=== PATIENT | female | born 2005 | race Asian ===

== ENCOUNTER 2024-06-23 12:17 | Inpatient (IN) ==
[2024-06-23] MEDS: SODIUM CHLORIDE 0.9% 1,000 ML IV SCH (13:06)
[2024-06-23] MEDS: ACETAMINOPHEN 1,000 MG/100 ML VIAL IV STA (13:07)
[2024-06-23 13:21] LABS: Appearance Urine Clear (Clear); Bacteria Urine Automated None Seen (None Seen); Bilirubin Urine Negative (Negative); Blood Urine Negative (Negative); Cast Urine Automated 0-2 /lpf (0-2); Color Urine Yellow; Glucose Urine UA Negative (Negative); Ketones Urine Negative (Negative); Leukocyte Esterase Urine Trace (Negative); Nitrite Urine Negative (Negative); Protein Urine Negative (Negative); Specific Gravity Urine 1.019 (1.000-1.030); Urobilinogen Urine Negative (Negative); WBC Urine Automated 0-5 /hpf (0-5); pH Urine >= 9.0 (4.5-7.5)
[2024-06-23 13:23] LABS: Base Excess VBG -1.1 mEq/L; HCO3 VBG 22 mmol/L; Oxygen Saturation VBG < 60.0 %; PCO2 VBG 32 mmHg (38-50); PO2 VBG 22 mmHg; pH VBG 7.45 (7.36-7.41)
[2024-06-23 13:25] LABS: Hematocrit (blood only) 37.5 % (37.0-47.0); Hemoglobin 12.8 g/dl (12.0-16.0); Mean Corpuscular Hemoglobin 29.8 pg (25.0-34.0); Mean Corpuscular Hgb Conc 34.1 g/dL (32.0-36.0); Mean Corpuscular Volume 87.2 fL (80.0-100.0); Mean Platelet Volume 10.3 fL (9.4-12.4); Platelet Count 328 K/uL (130-400); RDW Coefficient of Variation 12.1 % (11.5-14.5); White Blood Count 16.48 K/ul (4.8-10.8)
[2024-06-23 13:42] LABS: Basophils # (auto) 0.03 K/uL (0.00-0.20); Basophils % (auto) 0.2 %; Eosinophils # (auto) 0.01 K/uL (0.00-0.50); Eosinophils % (auto) 0.1 %; Immature Granulocytes # (auto) 0.08 K/uL (0.01-0.20); Immature Granulocytes % (auto) 0.5 %; Lymphocytes # (auto) 0.73 K/uL (1.20-3.40); Lymphocytes % (auto) 4.4 %; Monocytes # (auto) 0.47 K/uL (0.11-0.59); Monocytes % (auto) 2.9 %; Neutrophils # (auto) 15.16 K/uL (1.40-6.50); Neutrophils % (auto) 91.9 %
[2024-06-23 13:46] LABS: Alanine Aminotransferase 7 U/L (7-52); Albumin Level 4.6 gm/dl (3.4-5.0); Alkaline Phosphatase 47 U/L (34-104); Anion Gap 9 (3-11); Aspartate Aminotransferase 14 U/L (13-39); BUN Creatinine Ratio 12.9 (10-20); Bilirubin Direct 0.1 mg/dl (0-0.2); Blood Urea Nitrogen 9 mg/dl (6-23); Calcium 9.4 mg/dl (8.6-10.3); Carbon Dioxide 22 mmol/L (21-32); Chloride 104 mmol/L (98-107); Est GFR (African American) 144.6 ml/min; Est GFR (Non-African American) 124.7 ml/min; Glucose 106 mg/dl (70-99(Fasting)); Lipase 15 U/L (11-82); Magnesium 1.6 mg/dl (1.7-2.4); Potassium 3.6 mmol/L (3.5-5.1); Sodium 135 mmol/L (136-145); Total Protein 7.5 gm/dl (6.0-8.3)
--- NOTE | 2024-06-23 13:46 | XRay Report ---
XR chest 1V portable HISTORY: Sepsis COMPARISON: Chest 11/19/2023. FINDINGS: The lungs are clear. Cardiac silhouette is normal in size. No pleural effusions. No pneumot horax. IMPRESSION: No acute process. ACT 112: Negative or not required by law. Electronically signed by: Kumar Romero M.D. 06/23/2024 1:44 PM
[2024-06-23 13:49] LABS: Troponin I High Sensitivity < 2.3 pg/ml (0-14)
[2024-06-23 13:52] LABS: Partial Thromboplastin Time 27 Seconds (21-31); Prothrombin Time 10.5 Seconds (9.0-12.0)
[2024-06-23 14:09] LABS: Adenovirus PCR Not Detected (NotDetected); Bordetella parapertussis PCR Not Detected (NotDetected); Bordetella pertussis PCR Not Detected (NotDetected); Chlamydia pneumoniae PCR Not Detected (NotDetected); Coronavirus 229E PCR Not Detected (NotDetected); Coronavirus CoV-2 (COVID19)PCR Not Detected (NotDetected); Coronavirus HKU1 PCR Not Detected (NotDetected); Coronavirus NL63 PCR Not Detected (NotDetected); Coronavirus OC43PCR Not Detected (NotDetected); Human Metapneumovirus PCR Not Detected (NotDetected); Influenza A PCR Not Detected (NotDetected); Influenza B PCR Not Detected (NotDetected); Mycoplasma pneumoniae PCR Not Detected (NotDetected); Parainfluenza Virus 1 PCR Not Detected (NotDetected); Parainfluenza Virus 2 PCR Not Detected (NotDetected); Parainfluenza Virus 3 PCR Not Detected (NotDetected); Parainfluenza Virus 4 PCR Not Detected (NotDetected); Respiratory Syncytial VirusPCR Not Detected (NotDetected); Rhinovirus/Enterovirus PCR Not Detected (NotDetected)
--- NOTE | 2024-06-23 15:43 | Electrocardiogram Report ---
Test Reason : Blood Pressure : */* mmHG Vent. Rate : 121 BPM Atrial Rate : 121 BPM P-R Int : 144 ms QRS Dur : 84 ms QT Int : 308 ms P-R-T Axes : 56 103 54 degrees QTcB Int : 437 ms Sinus tachycardia Rightward axis Borderline ECG When compared with ECG of 19-Nov-2023 19:03, No significant change was found Confirmed by Magdaleno Gregorio ([id number]) on 06/23/2024 3:42:59 PM Referred By: REFERRED SELF Confirmed By: Magdaleno Gregorio
[2024-06-23] MEDS: OPTIRAY 320 100ml IV ONE (16:21)
--- NOTE | 2024-06-23 16:52 | CT Scan Report ---
ABDOMEN AND PELVIS CT WITH IV AND ORAL CONTRAST CT DOSE: 458.75 mGy.cm HISTORY: abdomen pain TECHNIQUE: Multiaxial CT images of the abdomen and pelvis were performed following the use of intrave nous and oral contrast. A dose lowering technique was utilized adhering to the principles of ALARA. COMPARISON STUDY: None. FINDINGS: The lung bases are clear. No pneumoperitoneum. No pneumatosis. No acute fractures. The live r, spleen, adrenal glands, pancreas, and gallbladder are unremarkable. The kidneys enhance normally. No hydronephrosis. No retroperitoneal lymphadenopathy. The main portal vein is patent. Normal caliber abdominal aorta. No pelvic lymphadenopathy. The bladder, uterus, left ovary are unremarkable. There is a 4.5 cm right ovarian cyst with trace surrounding fluid. No bowel wall thickening or obstruction. The appendix is seen inferior to the cecum. The proximal portion appendix fills with gas. However, t he mid to distal appendix fills with fluid. The mid to distal appendix is at the upper limits of norm al for size measuring 6 mm. There is questionable mild thickening of the appendiceal wall and mild pe riappendiceal fat stranding. Therefore, these findings are equivocal for acute appendicitis with an e marvin acute appendicitis the diagnosis of exclusion. IMPRESSION: 1. The mid to distal appendix fills with fluid and is at the upper limits of normal for size measurin g 6 mm. There is questionable mild thickening of the appendiceal wall and mild periappendiceal fat st randing. Therefore, these findings are equivocal for acute appendicitis with an early acute appendici tis the diagnosis of exclusion. Surgical consultation recommended. 2. A 4.5 cm right ovarian cyst with trace surrounding fluid. 3. No bowel wall thickening or obstruction. ACT 112: Negative or not required by law. Electronically signed by: Kumar Romero M.D. 06/23/2024 4:51 PM
--- NOTE | 2024-06-23 17:41 | Emergency Department Note ---
History of Present Illness General Chief Complaint: Vertigo Stated Complaint: VERTIGO, HEART HURTS, SORE THROAT Time Seen by Provider: 06/23/24 12:32 History of Present Illness Provider Complaint: + fever, + cough, + sore throat and + nasal congestion Onset (ago): 2 day(s) Duration: + constant Maximum Pain Intensity: 6 Able to tolerate fluids by mouth: Yes Associated symptoms: + chills, + myalgias, + rhinorrhea, + chest pain, + shortness of breath, + abdominal pain and + nausea; no headache, no stiff neck, no vomiting, no diarrhea or no dysuria Home Medications Medication Instructions Recorded Confirmed Type triamcinolone acetonide 55 mcg 0 spray intranasal DAILY 06/23/24 06/23/24 History nasal spray aerosol (Nasacort Allergy) Allergies Allergy/AdvReac Type Severity Reaction Status Date / Time animal dander Allergy Severe Difficulty Unverified 06/23/24 16:35 Breathing greer Allergy Severe Difficulty Unverified 06/23/24 16:35 Swallowing greer flavor Allergy Severe Difficulty Unverified 06/23/24 16:35 Swallowing oats Allergy Severe Oat Milk - Unverified 06/23/24 16:35 Swelling of throat pollen extracts Allergy Severe Sneezing, Unverified 06/23/24 16:35 itchy, watery eyes Past Med/Surg History Problem List (Updated 06/23/24 @ 20:23 by Arash Tolentino MD) Fever (Acute) Appendicitis (Acute) Concussion Medical History No pertinent family history Surgical History No pertinent past surgical history Social History Smoking Status: Never smoker Preferred Language: Spanish Feels Safe at Home: Yes Physical Exam 2 Vital Signs: Vital Signs - 24 hr 06/23/24 12:27 06/23/24 12:37 06/23/24 12:47 Temperature 38 C H Temperature Source Temporal Artery Sc an Pulse Rate 130 H 122 H Pulse Rate [Right Finger] 119 H Pulse Rhythm Regular Regular Pulse Rhythm [Righ t Finger] Regular Pulse Strength Normal Pulse Strength [Ri ght Finger] Normal Respiratory Rate 20 15 20 Respiratory Effort / Characteristics Non-Labored Sponta neous Non-Labored Respiratory Depth Normal Normal Respiratory Patter n Regular Blood Pressure 106/63 Blood Pressure [Ri ght Arm] 111/82 Blood Pressure Jessica n 77 Blood Pressure Jessica n [Right Arm] 91 Blood Pressure Pos ition Sitting Blood Pressure Pos ition [Right Arm] Lying Pulse Oximetry 100 100 97 Oxygen Delivery Me thod Room Air Room Air Room Air Sepsis Recent Feve r Within 48 Hours No Sepsis New/Unexpla ined Change in Men wilfrido Status N/A Sepsis Action Take n by Nursing No Action Required 06/23/24 13:07 06/23/24 13:17 06/23/24 13:46 Temperature Temperature Source Pulse Rate 122 H Pulse Rate [Right Finger] 120 H 116 H Pulse Rhythm Pulse Rhythm [Righ t Finger] Regular Regular Pulse Strength Pulse Strength [Ri ght Finger] Normal Normal Respiratory Rate 20 18 Respiratory Effort / Characteristics Non-Labored Non-Labored Respiratory Depth Normal Normal Respiratory Patter n Regular Regular Blood Pressure Blood Pressure [Ri ght Arm] 103/67 96/62 L Blood Pressure Jessica n Blood Pressure Jessica n [Right Arm] 79 73 Blood Pressure Pos ition Blood Pressure Pos ition [Right Arm] Lying Lying Pulse Oximetry 99 99 Oxygen Delivery Me thod Room Air Room Air Sepsis Recent Feve r Within 48 Hours Sepsis New/Unexpla ined Change in Men wilfrido Status Sepsis Action Take n by Nursing 06/23/24 14:25 06/23/24 16:28 06/23/24 18:30 Temperature Temperature Source Pulse Rate Pulse Rate [Right Finger] 119 H 97 H 94 H Pulse Rhythm Pulse Rhythm [Righ t Finger] Regular Pulse Strength Pulse Strength [Ri ght Finger] Normal Respiratory Rate 17 14 14 Respiratory Effort / Characteristics Non-Labored Respiratory Depth Normal Respiratory Patter n Regular Blood Pressure Blood Pressure [Ri ght Arm] 106/64 105/66 Blood Pressure Jessica n Blood Pressure Jessica n [Right Arm] 78 79 Blood Pressure Pos ition Blood Pressure Pos ition [Right Arm] Lying Pulse Oximetry 98 99 99 Oxygen Delivery Me thod Room Air Room Air Sepsis Recent Feve r Within 48 Hours Sepsis New/Unexpla ined Change in Men wilfrido Status Sepsis Action Take n by Nursing 06/23/24 19:00 Temperature Temperature Source Pulse Rate Pulse Rate [Right Finger] 100 H Pulse Rhythm Pulse Rhythm [Righ t Finger] Regular Pulse Strength Pulse Strength [Ri ght Finger] Respiratory Rate 20 Respiratory Effort / Characteristics Non-Labored Respiratory Depth Normal Respiratory Patter n Blood Pressure Blood Pressure [Ri ght Arm] 114/79 Blood Pressure Jessica n Blood Pressure Jessica n [Right Arm] 90 Blood Pressure Pos ition Blood Pressure Pos ition [Right Arm] Pulse Oximetry 98 Oxygen Delivery Me thod Room Air Sepsis Recent Feve r Within 48 Hours Sepsis New/Unexpla ined Change in Men wilfrido Status Sepsis Action Take n by Nursing Physical Exam: Physical Exam HENT: Exam performed. -Head: Normocephalic and atraumatic. -Right Ear: External ear normal. No mastoid erythema -Left Ear: External ear normal. No mastoid erythema -Mouth/Throat: The oropharynx is clear and moist. No trismus in the jaw. No dental abscesses or uvula swelling. No oropharyngeal exudate or tonsillar abscesses. EYES: Conjunctivae and EOM are normal. Pupils are equal, round, and reactive to light. Right eye exhibits no discharge. Left eye exhibits no discharge. No scleral icterus. NECK: Normal range of motion. Neck supple. No JVD present. No rigidity. No tracheal deviation and normal range of motion present. No Brudzinski's sign and no Kernig's sign noted. CV: Tachycardic rate, regular rhythm, normal heart sounds and intact distal pulses. There is no peripheral edema. Palpable radial pulses bue. PULM/CHEST: Effort normal and breath sounds normal. No respiratory distress. No stridor. She has no wheezes. She has no rales. -Chest Wall: She exhibits no tenderness. ABD: The abdomen is soft. Bowel sounds are normal. She has no distension. No mass is present. There is tenderness to palpation of the right lower quadrant. MUSC/SKEL: Normal range of motion. There is no peripheral edema, tenderness or deformity. LYMPH: No cervical adenopathy. NEURO: She is alert and oriented to person, place, and time. She has normal strength. No cranial nerve deficit or sensory deficit. Coordination and gait normal. GCS eye subscore is 4. GCS verbal subscore is 5. GCS motor subscore is 6. Cerebellar tests wnl. SKIN: Skin is warm and dry. She is not diaphoretic. PSYCH: She has a normal mood and affect. Behavior is normal. Judgment and thought content normal. Course Course 1232: The patient was evaluated in room A3. A complete history and physical exam was performed Cardiac monitoring: An order was placed for continuous cardiac monitoring. The monitor shows a rate of 130 with sinus rhythm interpreted by or Sepsis protocols initiated. 1442: Vital signs stable.Labs show leukocytosis 16. Chest x-ray BioFire negative. Urinalysis negative. Repeat exam no meningeal signs. No focal neurological deficits. Patient no respiratory distress. Awaiting CT of the abdomen pelvis, patient is drinking contrast but states her discomfort is better after receiving IV fluids and IV Tylenol. 1715: Vital signs stable. CT of the abdomen pelvis shows possible early appendicitis. Will consult general surgery. 1754: On reassessment the patient alert and oriented x 3 with no focal neurological deficits no meningeal signs. Patient is reporting no abdominal pain. On repeat abdominal exam the patient is having no pain on palpation of the abdomen. Spoke with Dr. Buchanan he was asking to speak with the patient on his cell phone he asked that the patient be connected to his cell phone [phone]. Nursing will attempt to call him on his cell phone to have her discuss her options with Dr. Buchanan. 1926: Patient evaluated by TRACY Buchanan on-call for general surgery Nathanael Buchanan. They state they do not plan on OR at this time and no antibiotics at this time. They stated they will speak with medicine to see if the medicine team can admit the patient to their service. Administered Medications Discontinued Medications Sodium Chloride (Nss) 1,000 mls @ 999 mls/hr IV .Q1H1M [facility] Stop: 06/23/24 14:45 Last Infusion: 06/23/24 14:54 Dose: Infused Documented By: Admin: 06/23/24 14:47 Dose: 1,000 mls/hr Documented By: Infusion: 06/23/24 14:46 Dose: Infused Documented By: Admin: 06/23/24 13:06 Dose: 999 mls/hr Documented By: YOSELIN Acetaminophen (Ofirmev) 1,000 mg in 100 mls @ 400 mls/hr IV NOW STA Stop: 06/23/24 12:53 Last Infusion: 06/23/24 13:21 Dose: Infused Documented By: Admin: 06/23/24 13:07 Dose: 400 mls/hr Documented By: YOSELIN Ioversol (Optiray 320 100ml) 95 ml IV ONCE ONE Stop: 06/23/24 16:22 Last Admin: 06/23/24 16:21 Dose: 95 ml Documented By: NICK Medical Decision Making Laboratory Data Attestation: I reviewed the patient's lab results. 06/23/24 12:55 06/23/24 12:55 Lab Results 06/23/24 06/23/24 06/23/24 Range/Units 12:03 12:40 12:55 WBC 16.48 H (4.8-10.8) K/ul RBC 4.30 (4.20-5.40) M/uL Hgb 12.8 (12.0-16.0) g/dl Hct 37.5 (37.0-47.0) % MCV 87.2 (80.0-100.0) fL MCH 29.8 (25.0-34.0) pg MCHC 34.1 (32.0-36.0) g/dL RDW Std Deviation 39.0 (36.4-46.3) fL RDW Coeff of Brandon 12.1 (11.5-14.5) % Plt Count 328 (130-400) K/uL MPV 10.3 (9.4-12.4) fL Immature Gran % (Auto) 0.5 % Neut % (Auto) 91.9 % Lymph % (Auto) 4.4 % Roberts % (Auto) 2.9 % Eos % (Auto) 0.1 % Baso % (Auto) 0.2 % Neut # (Auto) 15.16 H (1.40-6.50) K/uL Lymph # (Auto) 0.73 L (1.20-3.40) K/uL Roberts # (Auto) 0.47 (0.11-0.59) K/uL Eos # (Auto) 0.01 (0.00-0.50) K/uL Baso # (Auto) 0.03 (0.00-0.20) K/uL Immature Gran # (Auto) 0.08 (0.01-0.20) K/uL PT 10.5 (9.0-12.0) Seconds INR 1.0 (0.9-1.1) APTT 27 (21-31) Seconds PTT Ratio 1.0 VBG pH 7.45 H (7.36-7.41) VBG pCO2 32 L (38-50) mmHg VBG pO2 22 mmHg VBG HCO3 22 mmol/L VBG O2 Saturation < 60.0 % VBG Base Excess -1.1 mEq/L Sodium 135 L (136-145) mmol/L Potassium 3.6 (3.5-5.1) mmol/L Chloride 104 (98-107) mmol/L Carbon Dioxide 22 (21-32) mmol/L Anion Gap 9 (3-11) BUN 9 (6-23) mg/dl Creatinine 0.70 (0.6-1.2) mg/dl Est Cr Clr Drug Dosing 106.0 ml/min Est GFR ( Amer) 144.6 ml/min Est GFR (Non-Af Amer) 124.7 ml/min BUN/Creatinine Ratio 12.9 (10-20) Glucose 106 H (70-99(Fasting)) mg/dl Lactate 2.0 (0.4-2.0) mmol/L Calcium 9.4 (8.6-10.3) mg/dl Magnesium 1.6 L (1.7-2.4) mg/dl Total Bilirubin 1.0 (0.2-1.0) mg/dl Direct Bilirubin 0.1 (0-0.2) mg/dl AST 14 (13-39) U/L ALT 7 (7-52) U/L Alkaline Phosphatase 47 (34-104) U/L Troponin I High Sens < 2.3 (0-14) pg/ml Total Protein 7.5 (6.0-8.3) gm/dl Albumin 4.6 (3.4-5.0) gm/dl Lipase 15 (11-82) U/L Procalcitonin < 0.02 (0-0.5) ng/ml Urine Color Urine Appearance (Clear) Urine pH (4.5-7.5) Ur Specific [place] (1.000-1.030) Urine Protein (Negative) Urine Glucose (UA) (Negative) Urine Ketones (Negative) Urine Blood (Negative) Urine Nitrite (Negative) Urine Bilirubin (Negative) Urine Urobilinogen (Negative) Ur Leukocyte Esterase (Negative) Urine WBC (Auto) (0-5) /hpf Urine RBC (Auto) (0-2) /hpf U Hyaline Cast (Auto) (0-2) /lpf U Epithel Cells (Auto) (0-2) /hpf Urine Bacteria (Auto) (None Seen) POC Ur Test (NEG) Adenovirus (PCR) Not Detected (NotDetected) B. pertussis DNA (PCR) Not Detected (NotDetected) B.parapertussis DNA PCR Not Detected (NotDetected) C. pneumoniae DNA (PCR) Not Detected (NotDetected) Coronavirus OC43 (PCR) Not Detected (NotDetected) Coronavirus HKU1 (PCR) Not Detected (NotDetected) Coronavirus 229E (PCR) Not Detected (NotDetected) SARS-CoV-2 (PCR) Not Detected (NotDetected) Coronavirus NL63 (PCR) Not Detected (NotDetected) Monoscreen Negative (Negative) Human Metapneumovir PCR Not Detected (NotDetected) Influenza Type A (PCR) Not Detected (NotDetected) Influenza Type B (PCR) Not Detected (NotDetected) M. pneumoniae (PCR) Not Detected (NotDetected) Parainfluenza 1 (PCR) Not Detected (NotDetected) Parainfluenza 2 (PCR) Not Detected (NotDetected) Parainfluenza 3 (PCR) Not Detected (NotDetected) Parainfluenza 4 (PCR) Not Detected (NotDetected) RSV (PCR) Not Detected (NotDetected) Entero/Rhino (PCR) Not Detected (NotDetected) Group A Strep (PCR) NOT DETECTED (NotDetected) 06/23/24 06/23/24 Range/Units 13:09 13:13 WBC (4.8-10.8) K/ul RBC (4.20-5.40) M/uL Hgb (12.0-16.0) g/dl Hct (37.0-47.0) % MCV (80.0-100.0) fL MCH (25.0-34.0) pg MCHC (32.0-36.0) g/dL RDW Std Deviation (36.4-46.3) fL RDW Coeff of Brandon (11.5-14.5) % Plt Count (130-400) K/uL MPV (9.4-12.4) fL Immature Gran % (Auto) % Neut % (Auto) % Lymph % (Auto) % Roberts % (Auto) % Eos % (Auto) % Baso % (Auto) % Neut # (Auto) (1.40-6.50) K/uL Lymph # (Auto) (1.20-3.40) K/uL Roberts # (Auto) (0.11-0.59) K/uL Eos # (Auto) (0.00-0.50) K/uL Baso # (Auto) (0.00-0.20) K/uL Immature Gran # (Auto) (0.01-0.20) K/uL PT (9.0-12.0) Seconds INR (0.9-1.1) APTT (21-31) Seconds PTT Ratio VBG pH (7.36-7.41) VBG pCO2 (38-50) mmHg VBG pO2 mmHg VBG HCO3 mmol/L VBG O2 Saturation % VBG Base Excess mEq/L Sodium (136-145) mmol/L Potassium (3.5-5.1) mmol/L Chloride (98-107) mmol/L Carbon Dioxide (21-32) mmol/L Anion Gap (3-11) BUN (6-23) mg/dl Creatinine (0.6-1.2) mg/dl Est Cr Clr Drug Dosing ml/min Est GFR ( Amer) ml/min Est GFR (Non-Af Amer) ml/min BUN/Creatinine Ratio (10-20) Glucose (70-99(Fasting)) mg/dl Lactate (0.4-2.0) mmol/L Calcium (8.6-10.3) mg/dl Magnesium (1.7-2.4) mg/dl Total Bilirubin (0.2-1.0) mg/dl Direct Bilirubin (0-0.2) mg/dl AST (13-39) U/L ALT (7-52) U/L Alkaline Phosphatase (34-104) U/L Troponin I High Sens (0-14) pg/ml Total Protein (6.0-8.3) gm/dl Albumin (3.4-5.0) gm/dl Lipase (11-82) U/L Procalcitonin (0-0.5) ng/ml Urine Color Yellow Urine Appearance Clear (Clear) Urine pH >= 9.0 H (4.5-7.5) Ur Specific [place] 1.019 (1.000-1.030) Urine Protein Negative (Negative) Urine Glucose (UA) Negative (Negative) Urine Ketones Negative (Negative) Urine Blood Negative (Negative) Urine Nitrite Negative (Negative) Urine Bilirubin Negative (Negative) Urine Urobilinogen Negative (Negative) Ur Leukocyte Esterase Trace H (Negative) Urine WBC (Auto) 0-5 (0-5) /hpf Urine RBC (Auto) 3-5 H (0-2) /hpf U Hyaline Cast (Auto) 0-2 (0-2) /lpf U Epithel Cells (Auto) 3-5 H (0-2) /hpf Urine Bacteria (Auto) None Seen (None Seen) POC Ur Test NEG (NEG) Adenovirus (PCR) (NotDetected) B. pertussis DNA (PCR) (NotDetected) B.parapertussis DNA PCR (NotDetected) C. pneumoniae DNA (PCR) (NotDetected) Coronavirus OC43 (PCR) (NotDetected) Coronavirus HKU1 (PCR) (NotDetected) Coronavirus 229E (PCR) (NotDetected) SARS-CoV-2 (PCR) (NotDetected) Coronavirus NL63 (PCR) (NotDetected) Monoscreen (Negative) Human Metapneumovir PCR (NotDetected) Influenza Type A (PCR) (NotDetected) Influenza Type B (PCR) (NotDetected) M. pneumoniae (PCR) (NotDetected) Parainfluenza 1 (PCR) (NotDetected) Parainfluenza 2 (PCR) (NotDetected) Parainfluenza 3 (PCR) (NotDetected) Parainfluenza 4 (PCR) (NotDetected) RSV (PCR) (NotDetected) Entero/Rhino (PCR) (NotDetected) Group A Strep (PCR) (NotDetected) Imaging Data Attestation: I personally reviewed and interpreted this imaging study as follows: My Impression: Chest x-ray negative. Airway clear. No pneumothorax. No consolidation. No cardiomegaly or cephalization.. No free air under the diaphragm. No fractures of the skeletal structures. Radiologist's Impression: Chest X-Ray 06/23/24 12:39 XR chest 1V portable HISTORY: Sepsis COMPARISON: Chest 11/19/2023. FINDINGS: The lungs are clear. Cardiac silhouette is normal in size. No pleural effusions. No pneumothorax. IMPRESSION: No acute process. ACT 112: Negative or not required by law. Electronically signed by: Kumar Romero M.D. 06/23/2024 1:44 PM Abdomen/Pelvis CT 06/23/24 13:[address] WITH IV AND ORAL CONTRAST CT DOSE: 458.75 mGy.cm HISTORY: abdomen pain TECHNIQUE: Multiaxial CT images of the abdomen and pelvis were performed following the use of intravenous and oral contrast. A dose lowering technique was utilized adhering to the principles of ALARA. COMPARISON STUDY: None. FINDINGS: The lung bases are clear. No pneumoperitoneum. No pneumatosis. No acute fractures. The liver, spleen, adrenal glands, pancreas, and gallbladder are unremarkable. The kidneys enhance normally. No hydronephrosis. No retroperitoneal lymphadenopathy. The main portal vein is patent. Normal caliber abdominal aorta. No pelvic lymphadenopathy. The bladder, uterus, left ovary are unremarkable. There is a 4.5 cm right ovarian cyst with trace surrounding fluid. No bowel wall thickening or obstruction. The appendix is seen inferior to the cecum. The proximal portion appendix fills with gas. However, the mid to distal appendix fills with fluid. The mid to distal appendix is at the upper limits of normal for size measuring 6 mm. There is questionable mild thickening of the appendiceal wall and mild periappendiceal fat stranding. Therefore, these findings are equivocal for acute appendicitis with an early acute appendicitis the diagnosis of exclusion. IMPRESSION: 1. The mid to distal appendix fills with fluid and is at the upper limits of normal for size measuring 6 mm. There is questionable mild thickening of the appendiceal wall and mild periappendiceal fat stranding. Therefore, these findings are equivocal for acute appendicitis with an early acute appendicitis the diagnosis of exclusion. Surgical consultation recommended. 2. A 4.5 cm right ovarian cyst with trace surrounding fluid. 3. No bowel wall thickening or obstruction. ACT 112: Negative or not required by law. Electronically signed by: Kumar Romero M.D. 06/23/2024 4:51 PM ECG Data Attestation: I personally reviewed and interpreted this ECG as follows: Rate (beats per minute): 121 Rhythm: sinus tachycardia Findings: no ST depression, no ST elevation or no prolonged QT MDM Narrative 1232: The patient was evaluated in room A3. A complete history and physical exam was performed Cardiac monitoring: An order was placed for continuous cardiac monitoring. The monitor shows a rate of 130 with sinus rhythm interpreted by or Sepsis protocols initiated. 1442: Vital signs stable.Labs show leukocytosis 16. Chest x-ray BioFire negative. Urinalysis negative. Repeat exam no meningeal signs. No focal neurological deficits. Patient no respiratory distress. Awaiting CT of the abdomen pelvis, patient is drinking contrast but states her discomfort is better after receiving IV fluids and IV Tylenol. 1715: Vital signs stable. CT of the abdomen pelvis shows possible early appendicitis. Will consult general surgery. 1754: On reassessment the patient alert and oriented x 3 with no focal neurological deficits no meningeal signs. Patient is reporting no abdominal pain. On repeat abdominal exam the patient is having no pain on palpation of the abdomen. Spoke with Dr. Buchanan he was asking to speak with the patient on his cell phone he asked that the patient be connected to his cell phone [phone]. Nursing will attempt to call him on his cell phone to have her discuss her options with Dr. Buchanan. 1926: Patient evaluated by TRACY Buchanan on-call for general surgery Nathanael Buchanan. They state they do not plan on OR at this time and no antibiotics at this time. They stated they will speak with medicine to see if the medicine team can admit the patient to their service. Impression & Plan Appendicitis, Fever Discharge Plan Visit Data Chief Complaint: Vertigo Stated Complaint: VERTIGO, HEART HURTS, SORE THROAT ED Provider: Arash Tolentino Discharge Problem: Appendicitis, Fever Patient Disposition: Being Evaluated by Hospitalist Forms Stand Alone Forms: [employer] Prescriptions Prescriptions: No Action triamcinolone acetonide [Nasacort Allergy] 55 mcg Aerosol,[place] 0 spray INTRANASAL DAILY Rx Instructions: Pt unsure of brand, but states OTC nasal spray once daily specifically for allergies. Referrals Referrals: [place],[facility] [Primary Care Provider] - Discharge Problem: Appendicitis Qualifiers: Appendicitis type: unspecified Qualified Code(s): K37 - Unspecified appendicitis Fever Qualifiers: Fever type: unspecified Qualified Code(s): R50.9 - Fever, unspecified
[2024-06-23] MEDS ORDERED: ONDANSETRON INJ 2 MG/ML 2 ML VIAL IV PRN (20:28)
[2024-06-23] MEDS ORDERED: SODIUM CHLORIDE 0.9% 1,000 ML IV SCH (20:30)
--- NOTE | 2024-06-23 20:30 | History & Physical Report ---
Date of Service June 23, 2024 Assessment & Plan (1) Sepsis: (2) Hypomagnesemia: (3) Dehydration: (4) Fever: (5) Appendicitis: Plan Sepsis/dehydration/tachycardia/neutrophilic leukocytosis- CT scan abdomen pelvis suggest possible early appendicitis General surgery has assessed patient, and reports discussion with patient regarding possible appendectomy Will order CT scan of head, and chest to assess for any possible other etiology BioFire testing negative Zosyn 4.5 g IV every 8 hours Zofran 4 mg IV every 4 hours as needed Acetaminophen 1 g IV every 8 hours as needed for mild pain or fever NSS + KCl 20 mill equivalents at a 25 mL/h Hypomagnesemia- Magnesium 1.6, give magnesium sulfate 1 g IV History of Present Illness Chief Complaint: The patient presents to the emergency department with complaint of generalized body aches, fatigue, headache and neck pain, sore throat with nasal congestion, nonproductive cough, and abdominal pain with nausea, and fever. Primary Care Provider: [facility] The patient is a 19-year-old female with past medical history of allergic rhinitis, who presents to the emergency department with multiple complaints as noted above. The patient did undergo a workup in the emergency department which was significant for elevated WBC of 16.48, low magnesium of 1.6, negative BioFire testing, and a CT scan of abdomen pelvis which questioned possible early acute appendicitis. The patient was assessed by general surgery in the emergency department, who report that they did offer the patient surgery for appendicitis, however, patient and family did not give consent. The patient has developed more significant headache and some mild neck discomfort, without photophobia, and notes generalized muscle and bone aches, suggestive of developing early sepsis. Allergies Allergy/AdvReac Type Severity Reaction Status Date / Time animal dander Allergy Severe Difficulty Unverified 06/23/24 16:35 Breathing greer Allergy Severe Difficulty Unverified 06/23/24 16:35 Swallowing greer flavor Allergy Severe Difficulty Unverified 06/23/24 16:35 Swallowing oats Allergy Severe Oat Milk - Unverified 06/23/24 16:35 Swelling of throat pollen extracts Allergy Severe Sneezing, Unverified 06/23/24 16:35 itchy, watery eyes Home Medications Medication Instructions Recorded Confirmed Type triamcinolone acetonide 55 mcg 0 spray intranasal DAILY 06/23/24 06/23/24 History nasal spray aerosol (Nasacort Allergy) Past Med/Surg History Problem List (Updated 06/23/24 @ 22:59 by Shant Wells MD) Dehydration Hypomagnesemia Sepsis Fever (Acute) Appendicitis (Acute) Concussion Medical History No pertinent family history Surgical History No pertinent past surgical history Social History Smoking Status: Never smoker Hx Alcohol Use: No Hx Substance Use: No Preferred Language: Khmer Communication Ability: Effective Automatic Driller And Reamer Required: No Beliefs That Will Affect Care: None Current Living Situation: Alone Current Living Situation Comment: [employer] [facility] [facility] [employer] student Other Information That Helps Us Care for You: No Feels Safe at Home: Yes Safety Concerns: Feels Safe At This Time Assistive Devices: None Review of Systems Review of Systems: The patient denies lower extremity swelling, nausea, vomiting, blood in urine or stool, dysuria, urinary frequency or urgency, memory loss, loss of consciousness, rash, abnormal bruising or bleeding, imbalance, focal weakness, numbness or tingling in arms or legs, or night sweats. The review of systems is otherwise negative other than for that already noted above, and at least 10 systems have been reviewed. Physical Exam Physical Exam: The patient is awake, alert and oriented 3, well developed and well nourished, normocephalic and atraumatic, lying in bed and in no acute distress. HEENT--PERRL, EOMI, mucous membranes and oropharynx mildly dry. Neck--supple. No JVD. No bruits. Thyroid normal, trachea midline, no adenopathy. Heart--normal S1 and S2. No murmurs, rubs or gallops. Lungs--clear bilaterally, no respiratory distress, no accessory muscle use. Abdomen--normal bowel sounds and soft. Nontender. Nondistended, no hernias or masses, no organomegaly. Extremities--no cyanosis or clubbing. No edema. Dermatologic--normal skin turgor, normal color, no abnormal lymph nodes, no rash. Neurologic--cranial nerves II through XII grossly intact. Rheumatologic--normal range of motion. Psychiatric--normal affect. Results & Data Results & Data Vital Signs (Past 12 Hours) Vital Signs Temp Pulse Pulse Resp BP BP Pulse Ox 06/23/24 19:00 100 H 20 114/79 98 06/23/24 18:30 94 H 14 99 06/23/24 16:28 97 H 14 105/66 99 06/23/24 14:25 119 H 17 106/64 98 06/23/24 13:46 116 H 18 96/62 L 99 06/23/24 13:17 120 H 20 103/67 99 06/23/24 13:07 122 H 06/23/24 12:47 122 H 20 97 06/23/24 12:37 119 H 15 111/82 100 06/23/24 12:27 38 C H 130 H 20 106/63 100 O2 Del Method 06/23/24 19:00 Room Air 06/23/24 18:30 Room Air 06/23/24 16:28 06/23/24 14:25 Room Air 06/23/24 13:46 Room Air 06/23/24 13:17 Room Air 06/23/24 13:07 06/23/24 12:47 Room Air 06/23/24 12:37 Room Air 06/23/24 12:27 Room Air Laboratory Results Laboratory Results WBC 16.48 K/ul (4.8-10.8) H 06/23/24 12:55 RBC 4.30 M/uL (4.20-5.40) 06/23/24 12:55 Hgb 12.8 g/dl (12.0-16.0) 06/23/24 12:55 Hct 37.5 % (37.0-47.0) 06/23/24 12:55 MCV 87.2 fL (80.0-100.0) 06/23/24 12:55 MCH 29.8 pg (25.0-34.0) 06/23/24 12:55 MCHC 34.1 g/dL (32.0-36.0) 06/23/24 12:55 RDW Std Deviation 39.0 fL (36.4-46.3) 06/23/24 12:55 RDW Coeff of [place] 12.1 % (11.5-14.5) 06/23/24 12:55 Plt Count 328 K/uL (130-400) 06/23/24 12:55 MPV 10.3 fL (9.4-12.4) 06/23/24 12:55 Immature Gran % (Auto) 0.5 % 06/23/24 12:55 Neut % (Auto) 91.9 % 06/23/24 12:55 Lymph % (Auto) 4.4 % 06/23/24 12:55 [place] % (Auto) 2.9 % 06/23/24 12:55 Eos % (Auto) 0.1 % 06/23/24 12:55 Baso % (Auto) 0.2 % 06/23/24 12:55 Neut # (Auto) 15.16 K/uL (1.40-6.50) H 06/23/24 12:55 Lymph # (Auto) 0.73 K/uL (1.20-3.40) L 06/23/24 12:55 [place] # (Auto) 0.47 K/uL (0.11-0.59) 06/23/24 12:55 Eos # (Auto) 0.01 K/uL (0.00-0.50) 06/23/24 12:55 Baso # (Auto) 0.03 K/uL (0.00-0.20) 06/23/24 12:55 Immature Gran # (Auto) 0.08 K/uL (0.01-0.20) 06/23/24 12:55 PT 10.5 Seconds (9.0-12.0) 06/23/24 12:55 INR 1.0 (0.9-1.1) 06/23/24 12:55 APTT 27 Seconds (21-31) 06/23/24 12:55 PTT Ratio 1.0 06/23/24 12:55 VBG pH 7.45 (7.36-7.41) H 06/23/24 12:55 VBG pCO2 32 mmHg (38-50) L 06/23/24 12:55 VBG pO2 22 mmHg 06/23/24 12:55 VBG HCO3 22 mmol/L 06/23/24 12:55 VBG O2 Saturation < 60.0 % 06/23/24 12:55 VBG Base Excess -1.1 mEq/L 06/23/24 12:55 Sodium 135 mmol/L (136-145) L 06/23/24 12:55 Potassium 3.6 mmol/L (3.5-5.1) 06/23/24 12:55 Chloride 104 mmol/L (98-107) 06/23/24 12:55 Carbon Dioxide 22 mmol/L (21-32) 06/23/24 12:55 Anion Gap 9 (3-11) 06/23/24 12:55 BUN 9 mg/dl (6-23) 06/23/24 12:55 Creatinine 0.70 mg/dl (0.6-1.2) 06/23/24 12:55 Est Cr Clr Drug Dosing 106.0 ml/min 06/23/24 12:55 Est GFR ( Amer) 144.6 ml/min 06/23/24 12:55 Est GFR (Non-Af Amer) 124.7 ml/min 06/23/24 12:55 BUN/Creatinine Ratio 12.9 (10-20) 06/23/24 12:55 Glucose 106 mg/dl (70-99(Fasting)) H 06/23/24 12:55 Lactate 2.0 mmol/L (0.4-2.0) 06/23/24 12:55 Calcium 9.4 mg/dl (8.6-10.3) 06/23/24 12:55 Magnesium 1.6 mg/dl (1.7-2.4) L 06/23/24 12:55 Total Bilirubin 1.0 mg/dl (0.2-1.0) 06/23/24 12:55 Direct Bilirubin 0.1 mg/dl (0-0.2) 06/23/24 12:55 AST 14 U/L (13-39) 06/23/24 12:55 ALT 7 U/L (7-52) 06/23/24 12:55 Alkaline Phosphatase 47 U/L (34-104) 06/23/24 12:55 Troponin I High Sens < 2.3 pg/ml (0-14) 06/23/24 12:55 Total Protein 7.5 gm/dl (6.0-8.3) 06/23/24 12:55 Albumin 4.6 gm/dl (3.4-5.0) 06/23/24 12:55 Lipase 15 U/L (11-82) 06/23/24 12:55 Procalcitonin < 0.02 ng/ml (0-0.5) 06/23/24 12:55 Urine Color Yellow 06/23/24 13:09 Urine Appearance Clear (Clear) 06/23/24 13:09 Urine pH >= 9.0 (4.5-7.5) H 06/23/24 13:09 Ur Specific [place] 1.019 (1.000-1.030) 06/23/24 13:09 Urine Protein Negative (Negative) 06/23/24 13:09 Urine Glucose (UA) Negative (Negative) 06/23/24 13:09 Urine Ketones Negative (Negative) 06/23/24 13:09 Urine Blood Negative (Negative) 06/23/24 13:09 Urine Nitrite Negative (Negative) 06/23/24 13:09 Urine Bilirubin Negative (Negative) 06/23/24 13:09 Urine Urobilinogen Negative (Negative) 06/23/24 13:09 Ur Leukocyte Esterase Trace (Negative) H 06/23/24 13:09 Urine WBC (Auto) 0-5 /hpf (0-5) 06/23/24 13:09 Urine RBC (Auto) 3-5 /hpf (0-2) H 06/23/24 13:09 U Hyaline Cast (Auto) 0-2 /lpf (0-2) 06/23/24 13:09 U Epithel Cells (Auto) 3-5 /hpf (0-2) H 06/23/24 13:09 Urine Bacteria (Auto) None Seen (None Seen) 06/23/24 13:09 POC Ur Test NEG (NEG) 06/23/24 13:13 Adenovirus (PCR) Not Detected (NotDetected) 06/23/24 12:03 B. pertussis DNA (PCR) Not Detected (NotDetected) 06/23/24 12:03 B.parapertussis DNA PCR Not Detected (NotDetected) 06/23/24 12:03 C. pneumoniae DNA (PCR) Not Detected (NotDetected) 06/23/24 12:03 Coronavirus OC43 (PCR) Not Detected (NotDetected) 06/23/24 12:03 Coronavirus HKU1 (PCR) Not Detected (NotDetected) 06/23/24 12:03 Coronavirus 229E (PCR) Not Detected (NotDetected) 06/23/24 12:03 SARS-CoV-2 (PCR) Not Detected (NotDetected) 06/23/24 12:03 Coronavirus NL63 (PCR) Not Detected (NotDetected) 06/23/24 12:03 Monoscreen Negative (Negative) 06/23/24 12:55 Human Metapneumovir PCR Not Detected (NotDetected) 06/23/24 12:03 Influenza Type A (PCR) Not Detected (NotDetected) 06/23/24 12:03 Influenza Type B (PCR) Not Detected (NotDetected) 06/23/24 12:03 M. pneumoniae (PCR) Not Detected (NotDetected) 06/23/24 12:03 Parainfluenza 1 (PCR) Not Detected (NotDetected) 06/23/24 12:03 Parainfluenza 2 (PCR) Not Detected (NotDetected) 06/23/24 12:03 Parainfluenza 3 (PCR) Not Detected (NotDetected) 06/23/24 12:03 Parainfluenza 4 (PCR) Not Detected (NotDetected) 06/23/24 12:03 RSV (PCR) Not Detected (NotDetected) 06/23/24 12:03 Entero/Rhino (PCR) Not Detected (NotDetected) 06/23/24 12:03 Group A Strep (PCR) NOT DETECTED (NotDetected) 06/23/24 12:40 Impressions Chest X-Ray 06/23/24 12:39 XR chest 1V portable HISTORY: Sepsis COMPARISON: Chest 11/19/2023. FINDINGS: The lungs are clear. Cardiac silhouette is normal in size. No pleural effusions. No pneumothorax. IMPRESSION: No acute process. ACT 112: Negative or not required by law. Electronically signed by: Kumar Romero M.D. 06/23/2024 1:44 PM Abdomen/Pelvis CT 06/23/24 13:[address] WITH IV AND ORAL CONTRAST CT DOSE: 458.75 mGy.cm HISTORY: abdomen pain TECHNIQUE: Multiaxial CT images of the abdomen and pelvis were performed following the use of intravenous and oral contrast. A dose lowering technique was utilized adhering to the principles of ALARA. COMPARISON STUDY: None. FINDINGS: The lung bases are clear. No pneumoperitoneum. No pneumatosis. No acute fractures. The liver, spleen, adrenal glands, pancreas, and gallbladder are unremarkable. The kidneys enhance normally. No hydronephrosis. No retroperitoneal lymphadenopathy. The main portal vein is patent. Normal caliber abdominal aorta. No pelvic lymphadenopathy. The bladder, uterus, left ovary are unremarkable. There is a 4.5 cm right ovarian cyst with trace surrounding fluid. No bowel wall thickening or obstruction. The appendix is seen inferior to the c ecum. The proximal portion appendix fills with gas. However, the mid to distal appendix fills with fluid. The mid to distal appendix is at the upper limits of normal for size measuring 6 mm. There is questionable mild thickening of the appendiceal wall and mild periappendiceal fat stranding. Therefore, these findings are equivocal for acute appendicitis with an early acute appendicitis the diagnosis of exclusion. IMPRESSION: 1. The mid to distal appendix fills with fluid and is at the upper limits of normal for size measuring 6 mm. There is questionable mild thickening of the appendiceal wall and mild periappendiceal fat stranding. Therefore, these findings are equivocal for acute appendicitis with an early acute appendicitis the diagnosis of exclusion. Surgical consultation recommended. 2. A 4.5 cm right ovarian cyst with trace surrounding fluid. 3. No bowel wall thickening or obstruction. ACT 112: Negative or not required by law. Electronically signed by: Kumar Romero M.D. 06/23/2024 4:51 PM Code Status & VTE Plan Code Status Full code VTE Prophylaxis Plan VTE Prophylaxis will be ordered: Yes PG Care Time/CCT Total # of Minutes Spent Total Time Spent with Patient: Total time spent is greater than 50% in coordination of care (as documented) at patient's floor/unit and/or counseling patient: Coding Level of Care Code 30228 INT INP/OBS CARE 2/55MIN Diagnoses Sepsis A41.9 Hypomagnesemia E83.42 Dehydration E86.0 Fever R50.9 Fever type: unspecified Appendicitis K37 Appendicitis type: unspecified (4) Fever Fever type: unspecified Qualified Code(s): R50.9 - Fever, unspecified (5) Appendicitis Appendicitis type: unspecified Qualified Code(s): K37 - Unspecified appendicitis
--- NOTE | 2024-06-23 20:38 | Surgery Consultation ---
Date of Consultation June 23, 2024 Assessment & Plan (1) Fever: I discussed with the treating emergency room physician and the patient is being admitted on the hospitalist service. I also directly discussed the case with the hospitalist service. The cause of patient's underlying symptomatology, tachycardia, and fever is not entirely ascertained The patient certainly may be suffering from acute appendicitis although she does not have much in the way of abdominal pain at this time. Dr. Nathanael Cerda rt, attending physician for about any physician of general surgery has discussed with the patient and her parents and is offered to perform an appendectomy but at this time they do not wish to consent to this procedure as the diagnosis of appendicitis has not been definitively ascertained. I did discuss with the hospital service and there is concern the patient may have underlying early sepsis, again from source not yet to be determined and they plan on proceeding as follows: CT scan of the head will be checked due to the patient's lightheadedness and head congestion she reported Due to patient's recent pneumonia, elevated white blood cell count, and other symptomatology today will check a CT scan of the chest Empiric antibiotics in form of Zosyn will be initiated Appropriate cultures will be sent Patient be hydrated with intravenous fluids And her electrolytes will be supplemented accordingly In addition to the above from a surgical perspective we recommend the followin g: Keep patient n.p.o. for the present time, that way if acute appendicitis does declare itself while she is in the hospital she will be of the appropriate status to pursue surgical intervention Patient will be evaluated in the morning of 06/24/[address] Buchanan to see if appendectomy should be pursued Additional recommendations to be forthcoming based on pending labs and studies as they are completed as well as her clinical course as unfolds SCDs only for DVT prevention should be utilized until it is definitively ascertain whether or not the patient will require any surgical intervention Supervising Physician Co-Signing Physician Notes Her CT images and results were personally viewed and interpreted by myself She has likely early acute appendicitis with leukocytosis and low-grade fever After long discussion with the patient and her parents, we will start her on antibiotics and defer appendectomy at this time as her abdominal pain seemed to dissipate after being admitted Repeat labs and abdominal exam in the morning History of Present Illness Reason for Consultation: Concern for early appendicitis History of Present Illness This is a 19-year-old female who presented to the emergency department secondary to feeling lightheaded. The patient reports that she did have an episode of pneumonia in May of this year. She said that she was treated with antibiotics (she was not sure the name of this antibiotic) as well as a steroid and she clinically improved. She does note that she was feeling generally well until earlier this morning when she developed a feeling of lightheadedness and head congestion. She also said that she felt feverish but did not check her temperature. She reports some nausea without vomiting. She also noted 1 episode of a loose bowel movement and she reports a generalized headache. Upon presentation to the emergency department she reported the emergency doctor that she initially had some lower abdominal pain as well. At the time of my interview with the patient she said that she was feeling somewhat better and the abdominal pain that she was previously experiencing nearly completely resolved. She said that she felt very hungry. She did report some head congestion. She denied any neck pain. She denies any chest pain. She does report an intermittent cough. She denies any shortness of breath. She denies any dysuria. Since arrival to the emergency department she did have labs and imaging which I independent reviewed. She did have a chest x-ray that did not show any evidence of pneumonia. She also underwent a CT scan of the abdomen pelvis that showed mid to distal dilatation of the appendix measuring approximately 6 mm. There was some questionable thickening of the mid appendiceal wall and some mild pair appendiceal fat stranding in the interpreting radiologist felt that this was equivocal for acute appendicitis. Labs included a CBC were white blood cell count was elevated 16.4. Hemoglobin and hematocrit as well as the platelet count were normal. Regulation studies were normal. Chemistry profile showed sodium was 135 with a normal potassium. Her BUN and creatinine were both normal. Magnesium was slightly low at 1.6. There is no elevation of her LFTs or lipase. Urinalysis showed trace leukocyte Estrace but was otherwise not indicative of infection. Her urine test was negative. She did have a respiratory bio fire study checked which was negative for all viruses tested. The patient was also tested for strep throat which was negative. Upon arrival to the emergency department the patient was noted to be febrile and tachycardic. She did receive 1 L of intravenous fluid as well as 1000 mg of intravenous Tylenol and she did have improvement of her tachycardia but remained febrile. At the time of my interview she was resting comfortably bed and she did not appear to be in any distress. Concerning past medical history the patient has seasonal allergies Concerning past surgical history she denies any surgeries Concerning allergies patient says she is allergic to oat milk as well as cherries and she reports potential anaphylaxis for this problem Concerning social history she denies any illicit drug use. She also denies use lysing any tobacco products or vaping Concerning family history her father suffers from hypertension Allergies Allergy/AdvReac Type Severity Reaction Status Date / Time animal dander Allergy Severe Difficulty Unverified 06/23/24 16:35 Breathing greer Allergy Severe Difficulty Unverified 06/23/24 16:35 Swallowing greer flavor Allergy Severe Difficulty Unverified 06/23/24 16:35 Swallowing oats Allergy Severe Oat Milk - Unverified 06/23/24 16:35 Swelling of throat pollen extracts Allergy Severe Sneezing, Unverified 06/23/24 16:35 itchy, watery eyes Home Medications Medication Instructions Recorded Confirmed Type triamcinolone acetonide 55 mcg 0 spray intranasal DAILY 06/23/24 06/23/24 History nasal spray aerosol (Nasacort Allergy) Patient History Medical History No pertinent family history Surgical History No pertinent past surgical history Social History Smoking Status: Never smoker Hx Alcohol Use: No Hx Substance Use: No Preferred Language: Dutch Communication Ability: Effective Repairer Sash And Door Required: No Beliefs That Will Affect Care: None Current Living Situation: Alone Current Living Situation Comment: [employer] Other Information That Helps Us Care for You: No Feels Safe at Home: Yes Safety Concerns: Feels Safe At This Time Assistive Devices: None Review of Systems Constitutional: + fever, + chills, + body aches, + fatig ue and + malaise Eyes: no eye pain Ear, Nose, Mouth, Throat: no tinnitus and no sore throat Respiratory: + cough; no dyspnea on exertion Cardiovascular: no chest pain Gastrointestinal: + abdominal pain and + nausea; no vomiti ng Genitourinary: no dysuria Musculoskeletal: + myalgia Integumentary: no rash Neurologic: no localized weakness Physical Exam Constitutional: WD/WN, vitals as above Eyes: PERRL, conjunctivae normal, anicteric sclerae ENMT: Ears: no hearing impairment and no external ear abnormality Visual inspection showed the patient's tympanic membranes were well-visualized. There is no erythema or fluid. Neck: No nuchal rigidity Respiratory: Occasional rhonchi that appear to clear with cough. The patient was not using accessory muscles to aid in respiration Cardiovascular: Rate/Rhythm: regular rate and regular rhythm Vessels: dorsalis pedis pulses present and radial pulses present Gastrointestinal (Abdomen): At the time of my exam the patient's abdomen is soft and nondistended. There is no rigidity. There is no rebound tenderness or guarding. There is minimal pain in the lower abdomen in the suprapubic and right lower quadrants. Musculoskeletal: No lower extremity edema or calf tenderness. Feet are warm and nonmottled Skin: no rashes Neurologic: Patient is able to move all 4 extremities and follows simple commands without noted focal deficits Psychiatric: Orientation: alert and oriented x 3 Affect: + anxious affect Results & Data Vital Signs (Past 12 Hours) Vital Signs Temp Pulse Pulse Resp BP BP Pulse Ox 06/23/24 19:00 100 H 20 114/79 98 06/23/24 18:30 94 H 14 99 06/23/24 16:28 97 H 14 105/66 99 06/23/24 14:25 119 H 17 106/64 98 06/23/24 13:46 116 H 18 96/62 L 99 06/23/24 13:17 120 H 20 103/67 99 06/23/24 13:07 122 H 06/23/24 12:47 122 H 20 97 06/23/24 12:37 119 H 15 111/82 100 06/23/24 12:27 38 C H 130 H 20 106/63 100 O2 Del Method 06/23/24 19:00 Room Air 06/23/24 18:30 Room Air 06/23/24 16:28 06/23/24 14:25 Room Air 06/23/24 13:46 Room Air 06/23/24 13:17 Room Air 06/23/24 13:07 06/23/24 12:47 Room Air 06/23/24 12:37 Room Air 06/23/24 12:27 Room Air PG Care Time/CCT Total # of Minutes Spent Total Time Spent with Patient: Total time spent is greater than 50% in coordination of care (as documented) at patient's floor/unit and/or counseling patient: Coding Level of Care Code 50022 OFFICE CONSULT LVL Diagnoses Fever R50.9 Fever type: unspecified (1) Fever Fever type: unspecified Qualified Code(s): R50.9 - Fever, unspecified
[2024-06-23] MEDS: MAGNESIUM SULFATE / D5W 1 GM/100 ML BAG IV ONE (21:52)
[2024-06-23] MEDS: NSS + 20MEQ KCL 20 MEQ/1,000 ML BAG IV SCH (21:52)
[2024-06-23] MEDS: ACETAMINOPHEN 1,000 MG/100 ML VIAL IV PRN (22:20)
[2024-06-23] MEDS: PIPERACILLIN/TAZOBACTAM 4.5 GM/100 ML BAG IV ONE (22:29)
--- NOTE | 2024-06-23 23:37 | CT Scan Report ---
Exam(s): CT HEAD Without Contrast EXAM: CT Head Without Intravenous Contrast CLINICAL HISTORY: worsening headache. TECHNIQUE: Axial computed tomography images of the head/brain without intravenous contrast. CTDI is 37.42 mGy and DLP is 624.41 mGy-cm. Automated exposure control was utilized for the study. A dose lowering technique was utilized adhering to the principles of ALARA. COMPARISON: 09/16/2023. FINDINGS: Brain: Ventricle and sulci normal in size and configuration for age. No acute stroke. No acute hemorrhage. No abnormal extra-axial fluid collection. Ventricles: No hydrocephalus. No midline shift. Bones/joints: Unremarkable. No acute fracture. Soft tissues: Unremarkable. Sinuses: Unremarkable as visualized. No acute sinusitis. IMPRESSION: No acute abnormality. Electronically signed by: Mike Martinez M.D. 06/23/24 23:36 PM
--- NOTE | 2024-06-23 23:48 | CT Scan Report ---
Exam(s): CT CHEST Without Contrast EXAM: CT Chest Without Intravenous Contrast CLINICAL HISTORY: febrile, SOB. TECHNIQUE: Axial computed tomography images of the chest without intravenous contrast. CTDI is 6.74 mGy and DLP is 217.59 mGy-cm. Automated exposure control was utilized for the study. A dose lowering technique was utilized adhering to the principles of ALARA. COMPARISON: CXR 06-23-2024. FINDINGS: Lungs: Unremarkable. No mass. No consolidation. Pleural space: Unremarkable. No pneumothorax. No pleural effusion. Heart: Unremarkable. No cardiomegaly. No significant pericardial effusion. No significant coronary artery calcifications. Bones/joints: Unremarkable. No acute fracture. Soft tissues: Unremarkable. Vasculature: Unremarkable. No thoracic aortic aneurysm. Lymph nodes: Unremarkable. No enlarged lymph nodes. IMPRESSION: No acute abnormality. Electronically signed by: Mike Martinez M.D. 06/23/24 23:47 PM
[2024-06-24] MEDS: PIPERACILLIN/TAZOBACTAM 4.5 GM/100 ML BAG IV SCH (03:40)
[2024-06-24 07:12] LABS: Basophils # (auto) 0.04 K/uL (0.00-0.20); Basophils % (auto) 0.4 %; Eosinophils # (auto) 0.03 K/uL (0.00-0.50); Eosinophils % (auto) 0.3 %; Hematocrit (blood only) 34.3 % (37.0-47.0); Hemoglobin 11.4 g/dl (12.0-16.0); Immature Granulocytes # (auto) 0.04 K/uL (0.01-0.20); Immature Granulocytes % (auto) 0.4 %; Lymphocytes # (auto) 1.16 K/uL (1.20-3.40); Lymphocytes % (auto) 10.7 %; Mean Corpuscular Hemoglobin 29.7 pg (25.0-34.0); Mean Corpuscular Hgb Conc 33.2 g/dL (32.0-36.0); Mean Corpuscular Volume 89.3 fL (80.0-100.0); Mean Platelet Volume 10.3 fL (9.4-12.4); Monocytes # (auto) 0.77 K/uL (0.11-0.59); Monocytes % (auto) 7.1 %; Neutrophils # (auto) 8.82 K/uL (1.40-6.50); Neutrophils % (auto) 81.1 %; Platelet Count 279 K/uL (130-400); RDW Coefficient of Variation 12.4 % (11.5-14.5); Red Blood Count 3.84 M/uL (4.20-5.40); White Blood Count 10.86 K/ul (4.8-10.8)
[2024-06-24 07:20] LABS: Albumin Globulin Ratio 1.6 (0.9-2); Albumin Level 3.7 gm/dl (3.4-5.0); BUN Creatinine Ratio 9.4 (10-20); Bilirubin,Total 0.7 mg/dl (0.2-1.0); Calcium 7.9 mg/dl (8.6-10.3); Est GFR (African American) 148.9 ml/min; Est GFR (Non-African American) 128.5 ml/min; Globulin 2.3 gm/dl (2.5-4.0); Magnesium 2.2 mg/dl (1.7-2.4); Potassium 3.6 mmol/L (3.5-5.1)
--- NOTE | 2024-06-24 09:13 | Surgery Progress Note ---
Date of Service June 24, 2024 Assessment & Plan (1) Appendicitis: Plan: She began to have right lower quadrant abdominal pain this morning Will proceed with a laparoscopic appendectomy possible open today Consent was obtained, risks discussed including bleeding, infection, leak, abscess Admission and Anticipated Discharge Date Admission Date: June 23, 2024 Subjective Patient seen and examined. She states she now has right lower quadrant abdominal pain. She denies any nausea or vomiting. Had a fever last night around 9 PM. Review of Systems Constitutional: + fever; no chills Gastrointestinal: + abdominal pain; no nausea and no vomit ing Genitourinary: no dysuria and no urinary hesitancy Integumentary: no acne, no skin ulcer and no erythema Psychiatric: no behavioral changes and no depression Hematologic / Lymphatic: no easy bleeding and no easy bruising Physical Exam Constitutional: WD/WN, vitals as above Eyes: PERRL, conjunctivae normal, anicteric sclerae ENMT: external ear and nose normal, oropharynx normal Respiratory: normal respiratory effort, lungs clear to auscultation Cardiovascular: RRR, no murmur, no edema Gastrointestinal (Abdomen): Inspection/Auscultation: abdomen normal to inspection; abdomen not distended Percussion/Palpation: + abdomen tender (Right lower quadrant) and abdomen soft; no guarding and no hernia Musculoskeletal: no cyanosis or clubbing, extremities motor strength 5/5 Skin: no rashes, warm and dry Neurologic: PERRL, EOMI, accommodation nl, no face palsy, no dysarthria Results & Data Vital Signs (Past 12 Hours) Vital Signs Temp Pulse Pulse Resp BP BP Pulse Ox 06/24/24 08:15 36.9 C 86 18 100/63 98 06/24/24 03:50 81 06/24/24 01:54 36.7 C 100 H 16 96/61 L 98 06/24/24 00:37 37.2 C 06/24/24 00:27 88 06/23/24 22:02 06/23/24 22:02 39.4 C H 110 H 20 98/66 L 99 06/23/24 21:45 120 H 06/23/24 21:34 39.4 C H 110 H 20 98/66 L 99 06/23/24 21:15 O2 Del Method 06/24/24 08:15 Room Air 06/24/24 03:50 06/24/24 01:54 Room Air 06/24/24 00:37 06/24/24 00:27 06/23/24 22:02 Room Air 06/23/24 22:02 Room Air 06/23/24 21:45 06/23/24 21:34 Room Air 06/23/24 21:15 Room Air PG Care Time/CCT Total # of Minutes Spent Total Time Spent with Patient: Total time spent is greater than 50% in coordination of care (as documented) at patient's floor/unit and/or counseling patient: Coding Level of Care Code 87525 SUB INP/OBS CARE 2/35MIN Diagnoses Appendicitis K37 Appendicitis type: unspecified (1) Appendicitis Appendicitis type: unspecified Qualified Code(s): K37 - Unspecified appendicitis
[2024-06-24] MEDS: LACTATED RINGER'S 1,000 ML IV SCH (09:49)
[2024-06-24] MEDS ORDERED: fentaNYL citrate PF 100 MCG/2 ML VIAL ONE (09:59)
[2024-06-24] MEDS ORDERED: MIDAZOLAM HCL 1 MG/ML 2ML VIAL ONE (10:00)
--- NOTE | 2024-06-24 10:20 | Anesthesiology Consultation ---
Date of Service June 24, 2024 Assessment & Plan Chart Review Chart Review: Acceptable Risk for Surgery Consults Requested none History Surgery Operation Date: 06/24/24 07:00 Proposed Procedures p Laparoscopic Appendectomy Possible Alexa - Nathanael Buchanan DO Height/Weight Height: 5 ft 3 in Weight: 58.6 kg Allergies Allergy/AdvReac Type Severity Reaction Status Date / Time animal dander Allergy Severe Difficulty Unverified 06/23/24 16:35 Breathing greer Allergy Severe Difficulty Unverified 06/23/24 16:35 Swallowing greer flavor Allergy Severe Difficulty Unverified 06/23/24 16:35 Swallowing oats Allergy Severe Oat Milk - Unverified 06/23/24 16:35 Swelling of throat pollen extracts Allergy Severe Sneezing, Unverified 06/23/24 16:35 itchy, watery eyes lozenges Allergy Severe Swelling Uncoded 06/24/24 09:51 of Lip/Tongue/Throat Medications Home Medications Medication Instructions Recorded Confirmed Last Taken triamcinolone acetonide 55 mcg 0 spray intranasal DAILY 06/23/24 06/23/24 Unknown nasal spray aerosol (Nasacort Allergy) Active Medications Generic Name Dose Route Start Last Admin Trade Name Freq PRN Reason Stop Dose Admin Potassium Chloride/Sodium Chloride 20 meq in 1,000 mls @ 125 mls/hr 06/23/24 20:30 06/24/24 06:08 Normal Saline W/20 Meq Kcl IV 07/23/24 20:29 125 mls/hr .Q8H IFEOMA Administration Acetaminophen 1,000 mg in 100 mls @ 400 mls/hr 06/23/24 20:28 06/24/24 08:49 Ofirmev IV 06/26/24 20:27 Infused Q8H PRN Infusion Pain or Fever Piperacillin Sod/Tazobactam Sod 4.5 gm in 100 mls @ 25 mls/hr 06/24/24 04:00 06/24/24 07:52 Zosyn IV 07/04/24 03:59 Infused Q8H IFEOMA Infusion Lactated Ringer's 1,000 mls @ 15 mls/hr 06/24/24 10:00 06/24/24 09:49 Lr IV 07/24/24 09:59 15 mls/hr .Q24H IFEOMA Administration NPO Date Last Intake of Fluids: 06/22/24 Date Last Intake of Solids: 06/22/24 Past Medical History Medical History No pertinent family history Past Surgical History Surgical History No pertinent past surgical history Social History Smoking Status: Never smoker Hx Alcohol Use: No Hx Substance Use: No Physical Exam Vital Signs Last Vital Signs Temp 36.9 C 06/24/24 09:43 Pulse 91 H 06/24/24 09:43 Resp 20 06/24/24 09:43 BP 112/73 06/24/24 09:43 Pulse Ox 98 06/24/24 09:43 O2 Del Method Room Air 06/24/24 09:43 Testing Laboratory Results 06/24/24 06:26 06/24/24 06:26 PT 10.5 Seconds (9.0-12.0) 06/23/24 12:55 INR 1.0 (0.9-1.1) 06/23/24 12:55 APTT 27 Seconds (21-31) 06/23/24 12:55 Urine Color Yellow 06/23/24 13:09 Urine Appearance Clear (Clear) 06/23/24 13:09 Urine pH >= 9.0 (4.5-7.5) H 06/23/24 13:09 Ur Specific [place] 1.019 (1.000-1.030) 06/23/24 13:09 Urine Protein Negative (Negative) 06/23/24 13:09 Urine Glucose (UA) Negative (Negative) 06/23/24 13:09 Urine Ketones Negative (Negative) 06/23/24 13:09 Urine Nitrite Negative (Negative) 06/23/24 13:09 Ur Leukocyte Esterase Trace (Negative) H 06/23/24 13:09 Urine WBC (Auto) 0-5 /hpf (0-5) 06/23/24 13:09 Urine RBC (Auto) 3-5 /hpf (0-2) H 06/23/24 13:09 U Hyaline Cast (Auto) 0-2 /lpf (0-2) 06/23/24 13:09 U Epithel Cells (Auto) 3-5 /hpf (0-2) H 06/23/24 13:09 Urine Bacteria (Auto) None Seen (None Seen) 06/23/24 13:09 06/23/24 13:13 POC Ur Test NEG
[2024-06-24] MEDS ORDERED: ePHEDrine sulfate 50 MG/ML AMP IV PRN (10:21)
[2024-06-24] MEDS ORDERED: HYDROmorphone INJ 2 MG/ML SYR/VIAL IV PRN (10:21)
[2024-06-24] MEDS ORDERED: ONDANSETRON INJ 2 MG/ML 2 ML VIAL IV PRN (10:21)
[2024-06-24] MEDS ORDERED: PROMETHAZINE HCL 6.25 MG in SODIUM CHLORIDE 0.9% 50 ML IV PRN (10:21)
[2024-06-24] MEDS ORDERED: ATROPINE SULFATE 0.1 MG/ML 10ML SYR IV PRN (10:21)
[2024-06-24] MEDS: BUPIVACAINE/EPINEPHRINE 0.25% 1:200,000 30 ML VIAL ONE (11:00)
[2024-06-24] MEDS ORDERED: SUGAMMADEX SODIUM 200 MG/2 ML VIAL IV ONE (11:01)
--- NOTE | 2024-06-24 11:07 | Post Operative Brief Note ---
PG Immediate Post Op with CF Date of Surgery June 24, 2024 Pre & Post Diagnosis Operation Date: 06/24/24 07:00 Pre-Op Diagnosis: Acute Appendicitis Post-Op Diagnosis: Acute Appendicitis without perforation I identified the patient and participated in the time-out.: Yes Procedure Operation Date: 06/24/24 07:00 Actual Procedures p Laparoscopic Appendectomy(Not Applicable) - Nathanael Buchanan DO Surgeon Nathanael Buchanan DO [employer] Service Technician Karely GUTIERREZ Estimated Blood Loss 5 Findings Consistent with Post-Op Diagnosis Specimens Specimen Description: A. Appendix Drains Redding Catheter Anesthesia Type General Complications none Disposition Disposition: Recovery Room
--- NOTE | 2024-06-24 11:10 | Operative Report ---
PG Post Operative Report Pre & Post Diagnosis Operation Date: 06/24/24 07:00 Pre-Op Diagnosis: Acute Appendicitis Post-Op Diagnosis: Acute Appendicitis without perforation I identified the patient and participated in the time-out.: Yes Procedure Operation Date: 06/24/24 07:00 Actual Procedures p Laparoscopic Appendectomy(Not Applicable) - Nathanael Buchanan DO Surgeon Nathanael Buchanan DO Commercial Lines Assistant Karely GUTIERREZ Estimated Blood Loss 5 Findings Consistent with Post-Op Diagnosis Specimens Appendix to pathology Drains None Anesthesia Type General Complications none Disposition Disposition: Recovery Room Indications 19 yo female with acute appendicitis Description of Procedure The patient was brought to the OR and placed in the supine position and SCD's placed. At this time she underwent general endotracheal anesthesia without incident. At this time a Redding catheter was placed under sterile conditions. Her abdomen was prepped and draped in the usual sterile fashion. She was given appropriate pre-operative antibiotics. A timeout was called, the procedure was verified as Laparoscopic appendectomy, possible open. Surgical, anesthesia and nursing teams agreed and the procedure was begun. After injection of 0.25% Marcaine with epinephrine, a supraumbilical incision was made using a #11 blade scalpel and carried down to the fascia with a hemostat. The abdomen was then elevated with towel clamps and entered using the Veress needle confirming position using the saline drop test. Pneumoperitoneum was established and 5mm trocar was placed. Laparoscope was introduced. No injury was seen from our entrance to the abdomen. At this time a 5mm suprapubic port and 12mm LLQ port were placed under direct visualization. The patient was placed in Trendelenburg and rotated to the left. At this time the appendix was visualized and the tip was freed and elevated toward the abdominal wall. The distal half of the appendix appeared inflamed and dilated. A window was created in the mesoappendix at the base of the appendix. A 45mm sarmiento load stapler was then fired across the base of the appendix which appeared healthy. The mesoappendix was then taken using Harmonic device. The appendix was then placed in an Endocatch bag and removed through the LLQ port site. Staple line was inspected and was intact. Hemostasis was complete. The 12 mm port was then closed at the fascial level using a 0 Vicryl suture using the suture passer. All ports were removed under direct visualization and no bleeding was noted. The abdomen was desufflated and the skin was closed using 4-0 Monocryl in a subcuticular fashion. Sterile dressings were applied. Redding catheter was removed. The patient was then awakened from anesthesia having remained stable throughout the entire case and transported to PACU. All needle and sponge counts were correct x 2. The nurse practitioner was present and scrubbed for the entire procedure. She was essential in positioning, prepping and draping the patient, driving the laparoscope, closure of the incisions and placement of the dressings. I attest to the content of the Intraoperative Record and any orders documented therein. Any exceptions are noted below.
[2024-06-24] MEDS: fentaNYL citrate PF 100 MCG/2 ML VIAL IV PRN (11:30)
[2024-06-24] MEDS ORDERED: LIDOCAINE 2% 2 ML VIAL/AMP(20MG/ML) INFIL ONE (11:31)
[2024-06-24] MEDS ORDERED: ROCURONIUM BROMIDE 10 MG/ML 5 ML VIAL IV ONE (11:31)
[2024-06-24] MEDS ORDERED: PROPOFOL IV EMULSION 10 MG/ML 20 ML VIAL IV ONE (11:31)
[2024-06-24] MEDS ORDERED: DEXAMETHASONE SOD INJ 4 MG/ML VIAL ONE (11:32)
[2024-06-24] MEDS ORDERED: ONDANSETRON INJ 2 MG/ML 2 ML VIAL ONE (11:32)
--- NOTE | 2024-06-24 11:39 | Anesthesiology Progress Note ---
Date of Service June 24, 2024 Anesthesia Post Procedure Vital Signs Vital Signs: Temp Pulse Pulse Resp BP BP BP 06/24/24 09:43 36.9 C 91 H 20 112/73 06/24/24 09:39 06/24/24 08:15 36.9 C 86 18 100/63 06/24/24 08:00 88 06/24/24 03:50 81 06/24/24 01:54 36.7 C 100 H 16 96/61 L 06/24/24 00:37 37.2 C 06/24/24 00:27 88 06/23/24 22:02 06/23/24 22:02 39.4 C H 110 H 20 98/66 L 06/23/24 21:45 120 H 06/23/24 21:34 39.4 C H 110 H 20 98/66 L 06/23/24 21:15 06/23/24 19:00 100 H 20 114/79 06/23/24 18:30 94 H 14 06/23/24 16:28 97 H 14 105/66 06/23/24 14:25 119 H 17 106/64 06/23/24 13:46 116 H 18 96/62 L 06/23/24 13:17 120 H 20 103/67 06/23/24 13:07 122 H 06/23/24 12:47 122 H 20 06/23/24 12:37 119 H 15 111/82 06/23/24 12:27 38 C H 130 H 20 106/63 Pulse Ox O2 Del Method 06/24/24 09:43 98 Room Air 06/24/24 09:39 Room Air 06/24/24 08:15 98 Room Air 06/24/24 08:00 06/24/24 03:50 06/24/24 01:54 98 Room Air 06/24/24 00:37 06/24/24 00:27 06/23/24 22:02 Room Air 06/23/24 22:02 99 Room Air 06/23/24 21:45 06/23/24 21:34 99 Room Air 06/23/24 21:15 Room Air 06/23/24 19:00 98 Room Air 06/23/24 18:30 99 Room Air 06/23/24 16:28 99 06/23/24 14:25 98 Room Air 06/23/24 13:46 99 Room Air 06/23/24 13:17 99 Room Air 06/23/24 13:07 06/23/24 12:47 97 Room Air 06/23/24 12:37 100 Room Air 06/23/24 12:27 100 Room Air Pain Intensity Bilateral Abdomen: Pain Intensity: 4 Right Lower Abdomen: Pain Intensity: 3 Transfer of Care Handoff Completed per policy Notes Mental Status: alert / awake / arousable and participated in evaluation Patient Amnestic to Procedure: Yes Nausea / Vomiting: adequately controlled Pain: adequately controlled Airway Patency, RR, SpO2: stable & adequate BP & HR: stable & adequate Hydration State: stable & adequate Anesthetic Complications: no major complications apparent
[2024-06-24] MEDS ORDERED: oxyCODONE HCL IR 5 MG TAB (IMMEDIATE RELEASE) PO PRN (12:28)
[2024-06-24] MEDS ORDERED: ACETAMINOPHEN 325 MG TAB PO PRN (12:28)
[2024-06-24 15:17] VITALS: PULSE 80; RESP 16; TEMP 98.2; O2SAT 98
[2024-06-24 15:20] VITALS: BP 112/73
[2024-06-24] MEDS: oxyCODONE HCL IR 5 MG TAB (IMMEDIATE RELEASE) PO PRN (16:36)
--- NOTE | 2024-06-24 17:58 | Billing Data ---
Date of Service June 24, 2024 Coding Level of Care Code 23904 IN/OBS DISCH 30 MIN/LESS
--- NOTE | 2024-06-24 17:58 | Discharge Summary ---
Discharge Summary Date of Service June 24, 2024 Principal Dx & Hospital Course #1 = Principal Diagnosis (1) Appendicitis: presented with somewhat nonspecific symptoms but overall reasonably consistent with appendicitisCT scan also reasonably consistent with appendicitis. Initially patient opted for watchful waiting to follow for evolution of symptoms to ensure that surgery was absolutely necessary, over time her symptoms evolved, and surgery was more clearly and absolutely indicatedpatient taken to the OR today. Appendectomy uncomplicated. Safe/stable for home. Discharged home. Outpatient follow-up. Answered all questions the best my ability and to her/father's satisfaction. Notes For Next Care Provider Medication Changes From Visit acetaminophen, oxycodone prn pain Admission HPI Per Admitting Provider The patient is a 19-year-old female with past medical history of allergic r hinitis, who presents to the emergency department with multiple complaints as noted above. The patient did undergo a workup in the emergency department which was significant for elevated WBC of 16.48, low magnesium of 1.6, negative BioFire testing, and a CT scan of abdomen pelvis which questioned possible early acute appendicitis. The patient was assessed by general surgery in the emergency department, who report that they did offer the patient surgery for appendicitis, however, patient and family did not give consent. The patient has developed more significant headache and some mild neck discomfort, without photophobia, and notes generalized muscle and bone aches, suggestive of developing early sepsis. Discharge Exam In general she is awake and alert pleasant no distress. HEENT normocephalic atraumatic mucous membranes moist. Breathing unlabored no accessory muscle use good effort. Skin shows no rashes no pallor or icterus. Incisions are dressed. No surrounding erythema or bruising. Updated Medication List Medication Instructions Recorded Confirmed Type triamcinolone acetonide 55 mcg 0 spray intranasal DAILY 06/23/24 06/23/24 History nasal spray aerosol (Nasacort Allergy) oxycodone 5 mg tablet 5 mg PO Q8H PRN pain #5 tabs 06/24/24 Rx Hospital Stay Data Consultations 06/23/24 17:14 Consult General Surgery Stat 06/23/24 19:28 ED Decision to Admit Stat Procedures Performed Operation Date: 06/24/24 07:00 Actual Procedures p Laparoscopic Appendectomy(Not Applicable) - Nathanael Buchanan, Diagnostic Imagining Performed 06/23/24 13:47 CT Abd and Pelvis [CT abd pelvis oral and IV con] Stat 06/23/24 20:22 CT chest diagnostic wo con Stat CT head/brain wo con Stat Pending Results Patient Have Any Pending Studies at Discharge: Yes Discharge Instructions Given to Patient (Per Discharging Provider) You may remove your outer surgical dressing on 06/26/24. You will have small white bandages on underneath that are over your incision. You may shower with these on. They will tend to fall off on their own in a 7-10 days. for pain control - start with tylenol (acetaminophen) 500mg every 6 hours or 1000mg every 8 hours as a "baseline" of pain control (and try to take it pretty regularly for the first few days to stay ahead of the pain) -- once you're having less pain, then you can start to spread the pain medication out more / use it less. while you noted that ibuprofen (and therefore likely all anti-inflammatories) cause you heartburn, you can take 600mg (3 OTC) ibuprofen every 6 hours if needed for pain that the tylenol doesn't control. 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 my "day job" is supervising our family medicine residents and teaching the [employer] students doing their inpatient rotations - so fitting premeds into the mix is really easy. since you're interested in surgery, while i don't want to make a promise i can't keep, it's also possible we can get Dr Buchanan and the surgical team to allow you to shadow as well (like we discussed, that doesn't happen as often, but it never hurts to ask) to get things started for shadowing, create an email thread with me ([email or web address]) and the med staff office ([email or web address]) and then they'll walk you through the "bureaucracy" of it (HIPAA compliance, credentials, etc) -- usually that part takes about a month or so before you're actually able to start working with us. Total Time Total Time Spent Total Time Spent (In Minutes): <30
--- NOTE | 2024-06-25 11:26 | Coding Query ---
CODING QUERY To promote full compliance with coding requirements relating to patient care, provider participation is requested in all cases of fleet dispatch manager uncertainty. Please assist us with the question(s) below: Clinical Indicators: H&P: * Sepsis * Appendicitis * Vitals: Temp - 38 C; Pulse - 130; Resp - 20; BP 106/63; Pulse Ox - 100 * WBC - 16.48 * Magnesium - 1.6 Coding Question(s): Without further mention of sepsis in the record, are you able to clarify if sepsis was: ( x) Ruled in ( ) Ruled out ( ) Other (please specify): ( ) Unable to determine. Thank you Natalia Basilio Principal Diagnosis: "that condition established after study, to be chiefly responsible for occasioning the admission of the patient to the hospital for care." Co-Existing Principal Diagnosis: "when two or more diagnoses equally meet the criteria for principal diagnosis as determined by the circumstances of admission, diagnostic work up, and/or therapy provided, and the Alphabetic Index, Tabular List, or another coding guideline does not provide sequencing direction, any one of the diagnoses may be sequenced first." "When the physician has documented what appears to be a current diagnosis in the body of the record, but has not included the diagnosis in the final diagnostic statement, the physician should be asked whether the diagnosis should be added." (Source [facility]oding [facility] 2 QTR90. p3-4) JORGE
== END 2024-06-24 17:31 | disposition home or self-care (01) | DRG 854 ==
LOC: ED 12:17 → 2N 20:30 → SUATTDRO 20:30 → 2N 21:15